=== PATIENT | female | born 1965 | race Caucasian/White ===

== ENCOUNTER 2020-05-20 21:40 | Inpatient (IN) | payer SELFPAY ==
[~2020-05-20] VITALS: Ht 162.6 cm; Wt 115.2 kg
[2020-05-20 23:32] LABS: BASOPHIL % 0.3 % (0-2); PLATELET COUNT 143 x10^3mcL (130-400); RED CELL DISTRIBUTION WIDTH 13.2 % (11.5-14.5)
[2020-05-20 23:48] LABS: CALCIUM 7.7 mg/dL (8.5-10.1); CARBON DIOXIDE 25.9 mmol/L (21-32); CHLORIDE SERUM 101 mmol/L (98-107); GFR1 > 60 mL/min; GLUCOSE SERUM 111 mg/dL (74-106); POTASSIUM SERUM 3.7 mmol/L (3.5-5.1); SODIUM SERUM 137 mmol/L (136-145)
[2020-05-20 23:53] LABS: ALKALINE PHOSPHATASE 69 U/L (46-116); ALT/SGPT 257 U/L (14-59); AST/SGOT 235 U/L (15-37); BILIRUBIN TOTAL 0.4 mg/dL (0.20-1.00); C REACTIVE PROTEIN 5.7 mg/dL (<=0.9); TOTAL PROTEIN, SERUM 7.2 g/dL (6.4-8.2)
[2020-05-20 23:58] LABS: ALBUMIN 3.3 g/dL (3.4-5.0); LACTIC DEHYDROGENASE (LDH) 622 U/L (100-190)
[2020-05-21] VITALS (9 sets, daily range): BP systolic 95–136; BP diastolic 50–78
[2020-05-21 01:41] LABS: CHOLESTEROL/HDL RATIO 3.9
[2020-05-21 02:06] LABS: FREE T4 0.85 ng/dL (0.76-1.46); T4(THYROXINE) 7.2 ug/dL (4.7-13.3)
[2020-05-21 02:36] LABS: FREE THYROXINE INDEX 2.2 ug/dL (1.4-4.5)
[2020-05-21 03:32] LABS: T3 TOTAL 0.88 ng/mL
[2020-05-21 03:41] LABS: microscopic required? YES; urine erythrocyte NEGATIVE (NEGATIVE)
[2020-05-21 06:31] LABS: BASOPHIL % 0.5 % (0-2); PLATELET COUNT 151 x10^3mcL (130-400); RED CELL DISTRIBUTION WIDTH 12.8 % (11.5-14.5)
[2020-05-21 06:46] LABS: CALCIUM 8.2 mg/dL (8.5-10.1); CARBON DIOXIDE 26.4 mmol/L (21-32); CHLORIDE SERUM 103 mmol/L (98-107); CREATININE SERUM 0.8 mg/dL (0.6-1.0); GFR1 > 60 mL/min; GLUCOSE SERUM 164 mg/dL (74-106); MAGNESIUM 2.3 mg/dL (1.8-2.4); SODIUM SERUM 140 mmol/L (136-145)
[2020-05-22 05:33] VITALS: BP 104/63
[2020-05-22 08:31] VITALS: BP 90/47
[2020-05-22 13:08] VITALS: BP 115/60
[2020-05-22 16:30] VITALS: BP 114/39
[2020-05-22 21:00] VITALS: BP 97/61
[2020-05-23 05:50] VITALS: BP 113/52
[2020-05-23 07:01] LABS: BASOPHIL % 0.1 % (0-2); PLATELET COUNT 203 x10^3mcL (130-400); RED CELL DISTRIBUTION WIDTH 13.1 % (11.5-14.5)
[2020-05-23 07:10] LABS: ALKALINE PHOSPHATASE 73 U/L (46-116); ALT/SGPT 169 U/L (14-59); AST/SGOT 120 U/L (15-37); BILIRUBIN TOTAL 0.5 mg/dL (0.20-1.00); CALCIUM 8.2 mg/dL (8.5-10.1); CARBON DIOXIDE 26.2 mmol/L (21-32); CHLORIDE SERUM 104 mmol/L (98-107); CREATININE SERUM 0.8 mg/dL (0.6-1.0); GFR1 > 60 mL/min; GLUCOSE SERUM 102 mg/dL (74-106); POTASSIUM SERUM 4.1 mmol/L (3.5-5.1); SODIUM SERUM 140 mmol/L (136-145); TOTAL PROTEIN, SERUM 7.1 g/dL (6.4-8.2)
[2020-05-23 09:34] VITALS: BP 108/58
[2020-05-23 13:16] VITALS: BP 105/42
[2020-05-23 18:32] VITALS: BP 115/64
[2020-05-23 20:32] VITALS: BP 111/67; BP 96/55
[2020-05-24 05:46] VITALS: BP 116/59
[2020-05-24 06:50] LABS: BASOPHIL % 0.3 % (0-2); PLATELET COUNT 235 x10^3mcL (130-400); RED CELL DISTRIBUTION WIDTH 13.1 % (11.5-14.5)
[2020-05-24 07:15] LABS: ALKALINE PHOSPHATASE 110 U/L (46-116); ALT/SGPT 197 U/L (14-59); AST/SGOT 153 U/L (15-37); BILIRUBIN TOTAL 0.55 mg/dL (0.20-1.00); CALCIUM 8.7 mg/dL (8.5-10.1); CARBON DIOXIDE 25.4 mmol/L (21-32); CHLORIDE SERUM 109 mmol/L (98-107); CREATININE SERUM 0.6 mg/dL (0.6-1.0); GFR1 > 60 mL/min; GLUCOSE SERUM 107 mg/dL (74-106); POTASSIUM SERUM 3.9 mmol/L (3.5-5.1); SODIUM SERUM 138 mmol/L (136-145); TOTAL PROTEIN, SERUM 7.3 g/dL (6.4-8.2)
[2020-05-24 07:27] LABS: ALBUMIN 2.7 g/dL (3.4-5.0)
[2020-05-24 08:39] VITALS: BP 116/72
[2020-05-24 12:10] VITALS: BP 114/60
[2020-05-24 15:35] VITALS: BP 116/70
[2020-05-24 22:32] VITALS: BP 112/58
[2020-05-25 06:00] VITALS: BP 103/64
[2020-05-25 06:28] LABS: BASOPHIL % 0.1 % (0-2); PLATELET COUNT 278 x10^3mcL (130-400); RED CELL DISTRIBUTION WIDTH 13.2 % (11.5-14.5)
[2020-05-25 07:04] LABS: ALKALINE PHOSPHATASE 110 U/L (46-116); ALT/SGPT 174 U/L (14-59); AST/SGOT 111 U/L (15-37); BILIRUBIN TOTAL 0.61 mg/dL (0.20-1.00); CALCIUM 8.5 mg/dL (8.5-10.1); CARBON DIOXIDE 28.8 mmol/L (21-32); CHLORIDE SERUM 103 mmol/L (98-107); CREATININE SERUM 0.7 mg/dL (0.6-1.0); GFR1 > 60 mL/min; GLUCOSE SERUM 113 mg/dL (74-106); POTASSIUM SERUM 4.5 mmol/L (3.5-5.1); SODIUM SERUM 139 mmol/L (136-145)
[2020-05-25 07:13] LABS: BILIRUBIN DIRECT 0.16 mg/dL (0.0-0.2); BILIRUBIN TOTAL 0.54 mg/dL (0.20-1.00); TOTAL PROTEIN, SERUM 7.1 g/dL (6.4-8.2)
[2020-05-25 07:19] LABS: ALBUMIN 2.5 g/dL (3.4-5.0)
[2020-05-25 07:20] LABS: ALBUMIN 2.5 g/dL (3.4-5.0)
[2020-05-25 08:32] VITALS: BP 94/60
[2020-05-25 13:16] VITALS: BP 111/66
[2020-05-25 17:12] VITALS: BP 99/39
[2020-05-25 20:23] VITALS: BP 110/51
[2020-05-26 05:35] VITALS: BP 100/74
[2020-05-26 07:37] LABS: BILIRUBIN DIRECT 0.15 mg/dL (0.0-0.2); BILIRUBIN TOTAL 0.5 mg/dL (0.20-1.00); TOTAL PROTEIN, SERUM 6.2 g/dL (6.4-8.2)
[2020-05-26 07:40] LABS: ALBUMIN 2.6 g/dL (3.4-5.0)
[2020-05-26 08:59] VITALS: BP 87/40
[2020-05-26 12:30] VITALS: BP 127/32
[2020-05-26 16:25] VITALS: BP 118/53
[2020-05-26 20:31] VITALS: BP 102/51
[2020-05-27 06:23] VITALS: BP 110/50
[2020-05-27 06:45] LABS: ALBUMIN 2.4 g/dL (3.4-5.0); BILIRUBIN DIRECT 0.17 mg/dL (0.0-0.2); BILIRUBIN TOTAL 0.53 mg/dL (0.20-1.00); TOTAL PROTEIN, SERUM 6.6 g/dL (6.4-8.2)
[2020-05-27 08:50] VITALS: BP 86/41
[2020-05-27 12:23] VITALS: BP 85/38
[2020-05-27 16:18] VITALS: BP 103/58
[2020-05-27 21:11] VITALS: BP 110/58
[2020-05-28 06:52] VITALS: BP 107/70
[2020-05-28 07:21] LABS: BASOPHIL % 0.1 % (0-2); PLATELET COUNT 383 x10^3mcL (130-400); RED CELL DISTRIBUTION WIDTH 12.5 % (11.5-14.5)
[2020-05-28 07:47] LABS: CALCIUM 8.4 mg/dL (8.5-10.1); CARBON DIOXIDE 25.7 mmol/L (21-32); CHLORIDE SERUM 97 mmol/L (98-107); CREATININE SERUM 0.7 mg/dL (0.6-1.0); GFR1 > 60 mL/min; GLUCOSE SERUM 100 mg/dL (74-106); MAGNESIUM 2.1 mg/dL (1.8-2.4); PHOSPHOROUS 3.9 mg/dL (2.5-4.9); SODIUM SERUM 131 mmol/L (136-145)
[2020-05-28 09:01] VITALS: BP 153/89
[2020-05-28 11:31] VITALS: Ht 162.6 cm; Wt 115.2 kg
[2020-05-28 12:17] VITALS: BP 113/69
[2020-05-28 16:25] VITALS: BP 148/58
[2020-05-28 21:30] VITALS: BP 115/70
[2020-05-29 06:00] VITALS: BP 111/70
[2020-05-29 07:27] LABS: CALCIUM 8.4 mg/dL (8.5-10.1); CARBON DIOXIDE 27.7 mmol/L (21-32); CHLORIDE SERUM 98 mmol/L (98-107); CREATININE SERUM 0.7 mg/dL (0.6-1.0); GFR1 > 60 mL/min; GLUCOSE SERUM 121 mg/dL (74-106); POTASSIUM SERUM 4.2 mmol/L (3.5-5.1); SODIUM SERUM 132 mmol/L (136-145)
[2020-05-29 07:33] VITALS: BP 102/62
[2020-05-29 07:51] LABS: BASOPHIL % 0.1 % (0-2); PLATELET COUNT 377 x10^3mcL (130-400); RED CELL DISTRIBUTION WIDTH 12.1 % (11.5-14.5)
[2020-05-29 11:58] VITALS: BP 112/76
[2020-05-29 16:20] VITALS: BP 104/64
[2020-05-29 21:01] VITALS: BP 112/61
[2020-05-29 23:30] VITALS: BP 130/74
[2020-05-30 03:20] VITALS: BP 108/61
[2020-05-30 06:22] LABS: CALCIUM 8.5 mg/dL (8.5-10.1); CARBON DIOXIDE 26.2 mmol/L (21-32); CHLORIDE SERUM 99 mmol/L (98-107); CREATININE SERUM 0.7 mg/dL (0.6-1.0); GFR1 > 60 mL/min; GLUCOSE SERUM 101 mg/dL (74-106); POTASSIUM SERUM 4.5 mmol/L (3.5-5.1); SODIUM SERUM 134 mmol/L (136-145)
[2020-05-30 06:32] LABS: RED CELL DISTRIBUTION WIDTH 12.6 % (11.5-14.5)
[2020-05-30 06:54] LABS: BASOPHIL % 0 % (0-2); PLATELET COUNT 434 x10^3mcL (130-400)
[2020-05-30 08:00] VITALS: BP 94/57
[2020-05-30 12:00] VITALS: BP 104/56
[2020-05-30 16:00] VITALS: BP 117/70
[2020-05-30 19:15] VITALS: BP 121/78
[2020-05-31 06:29] VITALS: BP 109/50
[2020-05-31 06:49] LABS: CALCIUM 8.6 mg/dL (8.5-10.1); CARBON DIOXIDE 28.9 mmol/L (21-32); CHLORIDE SERUM 97 mmol/L (98-107); CREATININE SERUM 0.8 mg/dL (0.6-1.0); GFR1 > 60 mL/min; GLUCOSE SERUM 87 mg/dL (74-106); PLATELET COUNT 385 x10^3mcL (130-400); POTASSIUM SERUM 4.4 mmol/L (3.5-5.1); RED CELL DISTRIBUTION WIDTH 12.4 % (11.5-14.5); SODIUM SERUM 132 mmol/L (136-145)
[2020-05-31 07:03] LABS: BASOPHIL % 0 % (0-2)
[2020-05-31 08:09] VITALS: BP 108/61
[2020-05-31 12:51] VITALS: BP 115/64
[2020-05-31 16:07] VITALS: BP 113/66
[2020-06-01 05:59] VITALS: BP 99/63
[2020-06-01 07:15] LABS: C REACTIVE PROTEIN 11.8 mg/dL (<=0.9); CALCIUM 8.1 mg/dL (8.5-10.1); CARBON DIOXIDE 26.1 mmol/L (21-32); CHLORIDE SERUM 99 mmol/L (98-107); CREATININE SERUM 0.8 mg/dL (0.6-1.0); GFR1 > 60 mL/min; GLUCOSE SERUM 96 mg/dL (74-106); POTASSIUM SERUM 4.1 mmol/L (3.5-5.1); SODIUM SERUM 132 mmol/L (136-145)
[2020-06-01 08:26] LABS: BASOPHIL % 0.3 % (0-2); PLATELET COUNT 346 x10^3mcL (130-400); RED CELL DISTRIBUTION WIDTH 12.5 % (11.5-14.5)
[2020-06-01 08:44] VITALS: BP 99/66
[2020-06-01 13:04] VITALS: BP 100/63
[2020-06-01 17:05] VITALS: BP 138/80
[2020-06-01 20:39] VITALS: BP 97/57
[2020-06-02 05:36] VITALS: BP 94/57
[2020-06-02 06:36] LABS: C REACTIVE PROTEIN 9.6 mg/dL (<=0.9); CALCIUM 8.8 mg/dL (8.5-10.1); CHLORIDE SERUM 99 mmol/L (98-107); CREATININE SERUM 0.6 mg/dL (0.6-1.0); GFR1 > 60 mL/min; GLUCOSE SERUM 118 mg/dL (74-106); POTASSIUM SERUM 4.3 mmol/L (3.5-5.1); SODIUM SERUM 131 mmol/L (136-145)
[2020-06-02 07:40] LABS: PLATELET COUNT 307 x10^3mcL (130-400); RED CELL DISTRIBUTION WIDTH 12.4 % (11.5-14.5)
[2020-06-02 07:47] LABS: BASOPHIL % 0 % (0-2)
[2020-06-02 08:18] VITALS: BP 95/66
[2020-06-02 13:14] VITALS: BP 97/56
[2020-06-02 16:47] VITALS: BP 108/65
[2020-06-02 21:56] VITALS: BP 123/76
[2020-06-03 06:26] VITALS: BP 128/80
[2020-06-03 07:01] LABS: BASOPHIL % 0.1 % (0-2); PLATELET COUNT 385 x10^3mcL (130-400); RED CELL DISTRIBUTION WIDTH 12.3 % (11.5-14.5)
[2020-06-03 07:15] LABS: C REACTIVE PROTEIN 4.3 mg/dL (<=0.9); CALCIUM 8.8 mg/dL (8.5-10.1); CARBON DIOXIDE 28.3 mmol/L (21-32); CHLORIDE SERUM 101 mmol/L (98-107); CREATININE SERUM 0.6 mg/dL (0.6-1.0); GFR1 > 60 mL/min; GLUCOSE SERUM 143 mg/dL (74-106); POTASSIUM SERUM 4.1 mmol/L (3.5-5.1); SODIUM SERUM 136 mmol/L (136-145)
[2020-06-03 08:25] VITALS: BP 98/53
[2020-06-03 11:59] VITALS: BP 122/75
[2020-06-03 15:42] VITALS: BP 110/66
[2020-06-03 21:00] VITALS: BP 105/69
[2020-06-04 06:09] VITALS: BP 116/65
[2020-06-04 06:44] LABS: BASOPHIL % 0.1 % (0-2); PLATELET COUNT 357 x10^3mcL (130-400); RED CELL DISTRIBUTION WIDTH 12.4 % (11.5-14.5)
[2020-06-04 06:51] LABS: C REACTIVE PROTEIN 2.1 mg/dL (<=0.9); CALCIUM 8.9 mg/dL (8.5-10.1); CARBON DIOXIDE 28.8 mmol/L (21-32); CHLORIDE SERUM 101 mmol/L (98-107); CREATININE SERUM 0.7 mg/dL (0.6-1.0); GFR1 > 60 mL/min; GLUCOSE SERUM 145 mg/dL (74-106); POTASSIUM SERUM 4.7 mmol/L (3.5-5.1); SODIUM SERUM 136 mmol/L (136-145)
[2020-06-04 09:39] VITALS: BP 110/803
[2020-06-04 13:00] VITALS: BP 113/75
[2020-06-04 16:47] VITALS: BP 134/74
[2020-06-04 20:39] VITALS: BP 111/50
[2020-06-05 06:29] LABS: BASOPHIL % 0.1 % (0-2); PLATELET COUNT 311 x10^3mcL (130-400)
[2020-06-05 06:34] VITALS: BP 103/57
[2020-06-05 06:42] LABS: C REACTIVE PROTEIN 1.2 mg/dL (<=0.9); CALCIUM 8.6 mg/dL (8.5-10.1); CHLORIDE SERUM 101 mmol/L (98-107); CREATININE SERUM 0.6 mg/dL (0.6-1.0); GFR1 > 60 mL/min; GLUCOSE SERUM 127 mg/dL (74-106); POTASSIUM SERUM 4.4 mmol/L (3.5-5.1); SODIUM SERUM 135 mmol/L (136-145)
[2020-06-05 09:33] VITALS: BP 101/68
[2020-06-05 11:52] VITALS: BP 109/41
[2020-06-05 17:33] VITALS: BP 113/69
[2020-06-05 20:42] VITALS: BP 105/66
[2020-06-06 02:23] VITALS: BP 103/66
[2020-06-06 07:11] LABS: BASOPHIL % 0.1 % (0-2); PLATELET COUNT 276 x10^3mcL (130-400); RED CELL DISTRIBUTION WIDTH 12.4 % (11.5-14.5)
[2020-06-06 07:17] LABS: C REACTIVE PROTEIN 0.6 mg/dL (<=0.9); CALCIUM 8.6 mg/dL (8.5-10.1); CARBON DIOXIDE 29.6 mmol/L (21-32); CHLORIDE SERUM 102 mmol/L (98-107); CREATININE SERUM 0.6 mg/dL (0.6-1.0); GFR1 > 60 mL/min; GLUCOSE SERUM 136 mg/dL (74-106); POTASSIUM SERUM 4.3 mmol/L (3.5-5.1); SODIUM SERUM 135 mmol/L (136-145)
[2020-06-06 08:27] VITALS: BP 124/69
[2020-06-06 12:02] VITALS: BP 111/70
[2020-06-06 16:29] VITALS: BP 111/81
[2020-06-06 20:07] VITALS: BP 135/65
[2020-06-07 05:45] VITALS: BP 104/67
[2020-06-07 05:46] VITALS: BP 105/61
[2020-06-07 06:25] LABS: BASOPHIL % 0.1 % (0-2); PLATELET COUNT 261 x10^3mcL (130-400); RED CELL DISTRIBUTION WIDTH 12.5 % (11.5-14.5)
[2020-06-07 06:40] LABS: C REACTIVE PROTEIN 0.4 mg/dL (<=0.9); CALCIUM 8.4 mg/dL (8.5-10.1); CARBON DIOXIDE 28.8 mmol/L (21-32); CHLORIDE SERUM 101 mmol/L (98-107); CREATININE SERUM 0.6 mg/dL (0.6-1.0); GFR1 > 60 mL/min; GLUCOSE SERUM 128 mg/dL (74-106); POTASSIUM SERUM 4.3 mmol/L (3.5-5.1); SODIUM SERUM 137 mmol/L (136-145)
[2020-06-07 08:44] VITALS: BP 113/60
[2020-06-07 11:58] VITALS: BP 121/62
[2020-06-07 16:25] VITALS: BP 123/69
[2020-06-07 20:45] VITALS: BP 101/56
[2020-06-08 06:50] VITALS: BP 95/60
[2020-06-08 08:17] VITALS: BP 104/57
[2020-06-08 12:04] VITALS: BP 110/76
[2020-06-08 18:18] VITALS: BP 108/62
[2020-06-08 20:36] VITALS: BP 120/70
[2020-06-09 05:32] VITALS: BP 96/47
[2020-06-09 08:15] VITALS: BP 115/76
[2020-06-09 12:47] VITALS: BP 101/70
[2020-06-09 16:02] VITALS: BP 107/64
[2020-06-09 20:23] VITALS: BP 102/74
[2020-06-10 06:24] LABS: PLATELET COUNT 196 x10^3mcL (130-400); RED CELL DISTRIBUTION WIDTH 12.6 % (11.5-14.5)
[2020-06-10 06:56] LABS: BASOPHIL % 0 % (0-2)
[2020-06-10 06:57] LABS: CALCIUM 8.2 mg/dL (8.5-10.1); CARBON DIOXIDE 28.8 mmol/L (21-32); CHLORIDE SERUM 101 mmol/L (98-107); CREATININE SERUM 0.7 mg/dL (0.6-1.0); GFR1 > 60 mL/min; GLUCOSE SERUM 130 mg/dL (74-106); POTASSIUM SERUM 4.1 mmol/L (3.5-5.1); SODIUM SERUM 136 mmol/L (136-145)
[2020-06-10 07:15] VITALS: BP 109/58
[2020-06-10 09:29] VITALS: BP 102/63
[2020-06-10 12:33] VITALS: BP 94/56
[2020-06-10 17:33] VITALS: BP 117/51
[2020-06-10 21:09] VITALS: BP 97/64
[2020-06-11 05:36] VITALS: BP 117/63
[2020-06-11 09:13] LABS: BASOPHIL % 0 % (0-2); PLATELET COUNT 193 x10^3mcL (130-400); RED CELL DISTRIBUTION WIDTH 12.8 % (11.5-14.5)
[2020-06-11 09:30] VITALS: BP 120/77
[2020-06-11 13:20] VITALS: BP 104/71
[2020-06-11 15:30] VITALS: BP 104/71
[2020-06-11 16:36] VITALS: BP 124/67
[2020-06-11 21:03] VITALS: BP 109/70
[2020-06-12 05:24] VITALS: BP 119/75
[2020-06-12 08:40] VITALS: BP 110/68
[2020-06-12 12:17] VITALS: BP 129/63
[2020-06-12 17:05] VITALS: BP 110/62
[2020-06-12 21:49] VITALS: BP 100/70
[2020-06-13 04:46] VITALS: BP 106/64
[2020-06-13 08:08] VITALS: BP 113/67
[2020-06-13 13:29] VITALS: BP 125/77
[2020-06-13 17:16] VITALS: BP 107/69
[2020-06-13 20:46] VITALS: BP 115/73
[2020-06-14 04:55] VITALS: BP 93/54
[2020-06-14 07:48] LABS: CALCIUM 8.5 mg/dL (8.5-10.1); CARBON DIOXIDE 26.9 mmol/L (21-32); CHLORIDE SERUM 101 mmol/L (98-107); CREATININE SERUM 0.6 mg/dL (0.6-1.0); GFR1 > 60 mL/min; GLUCOSE SERUM 129 mg/dL (74-106); POTASSIUM SERUM 3.9 mmol/L (3.5-5.1); SODIUM SERUM 137 mmol/L (136-145)
[2020-06-14 08:40] LABS: PLATELET COUNT 188 x10^3mcL (130-400); RED CELL DISTRIBUTION WIDTH 13.2 % (11.5-14.5)
[2020-06-14 08:52] VITALS: BP 106/61
[2020-06-14 09:41] LABS: BASOPHIL % 0 % (0-2)
[2020-06-14 12:32] VITALS: BP 97/57
[2020-06-14 16:11] VITALS: BP 99/63
[2020-06-14 21:19] VITALS: BP 116/60
[2020-06-15 05:14] VITALS: BP 93/58
[2020-06-15 06:32] LABS: PLATELET COUNT 168 x10^3mcL (130-400); RED CELL DISTRIBUTION WIDTH 13.3 % (11.5-14.5)
[2020-06-15 06:52] LABS: CALCIUM 8.5 mg/dL (8.5-10.1); CARBON DIOXIDE 29.3 mmol/L (21-32); CHLORIDE SERUM 102 mmol/L (98-107); CREATININE SERUM 0.7 mg/dL (0.6-1.0); GFR1 > 60 mL/min; GLUCOSE SERUM 136 mg/dL (74-106); POTASSIUM SERUM 4.1 mmol/L (3.5-5.1); SODIUM SERUM 137 mmol/L (136-145)
[2020-06-15 07:04] LABS: C REACTIVE PROTEIN < 0.2 mg/dL (<=0.9)
[2020-06-15 07:08] LABS: BASOPHIL % 0 % (0-2)
[2020-06-15 08:34] VITALS: BP 114/69
[2020-06-15 13:43] VITALS: BP 111/69
[2020-06-15 18:33] VITALS: BP 124/79
[2020-06-15 20:35] VITALS: BP 104/59
[2020-06-16 06:24] VITALS: BP 111/59
[2020-06-16 07:09] LABS: CALCIUM 8.2 mg/dL (8.5-10.1); CARBON DIOXIDE 29.5 mmol/L (21-32); CHLORIDE SERUM 102 mmol/L (98-107); CREATININE SERUM 0.7 mg/dL (0.6-1.0); GFR1 > 60 mL/min; GLUCOSE SERUM 132 mg/dL (74-106); SODIUM SERUM 137 mmol/L (136-145)
[2020-06-16 08:05] LABS: BASOPHIL % 0.2 % (0-2); PLATELET COUNT 166 x10^3mcL (130-400); RED CELL DISTRIBUTION WIDTH 13.6 % (11.5-14.5)
[2020-06-16 09:16] VITALS: BP 102/64
[2020-06-16 13:08] VITALS: BP 101/66
[2020-06-16 16:52] VITALS: BP 124/54
[2020-06-16 21:57] VITALS: BP 100/62
[2020-06-17 05:23] VITALS: BP 106/55
[2020-06-17 07:15] LABS: PLATELET COUNT 166 x10^3mcL (130-400); RED CELL DISTRIBUTION WIDTH 13.7 % (11.5-14.5)
[2020-06-17 07:24] LABS: CALCIUM 8.5 mg/dL (8.5-10.1); CARBON DIOXIDE 30.2 mmol/L (21-32); CHLORIDE SERUM 103 mmol/L (98-107); CREATININE SERUM 0.5 mg/dL (0.6-1.0); GFR1 > 60 mL/min; GLUCOSE SERUM 128 mg/dL (74-106); POTASSIUM SERUM 4.1 mmol/L (3.5-5.1); SODIUM SERUM 139 mmol/L (136-145)
[2020-06-17 07:30] LABS: BASOPHIL % 0 % (0-2)
[2020-06-17 07:51] VITALS: BP 153/96
[2020-06-17 12:20] VITALS: BP 105/70
[2020-06-17 16:20] VITALS: BP 135/59
[2020-06-17 20:35] VITALS: BP 100/64
[2020-06-18 06:28] VITALS: BP 91/50
[2020-06-18 07:01] LABS: CALCIUM 8.5 mg/dL (8.5-10.1); CARBON DIOXIDE 30.1 mmol/L (21-32); CHLORIDE SERUM 103 mmol/L (98-107); CREATININE SERUM 0.6 mg/dL (0.6-1.0); GFR1 > 60 mL/min; GLUCOSE SERUM 139 mg/dL (74-106); PLATELET COUNT 168 x10^3mcL (130-400); RED CELL DISTRIBUTION WIDTH 13.8 % (11.5-14.5); SODIUM SERUM 139 mmol/L (136-145)
[2020-06-18 07:22] LABS: C REACTIVE PROTEIN < 0.2 mg/dL (<=0.9)
[2020-06-18 08:11] LABS: BASOPHIL % 0 % (0-2)
[2020-06-18 09:07] VITALS: BP 115/60
[2020-06-18 12:14] VITALS: BP 102/71
[2020-06-18 17:10] VITALS: BP 106/61
[2020-06-18 19:32] VITALS: BP 94/55
[2020-06-19 05:38] VITALS: BP 104/57
[2020-06-19 07:02] LABS: PLATELET COUNT 168 x10^3mcL (130-400); RED CELL DISTRIBUTION WIDTH 14.2 % (11.5-14.5)
[2020-06-19 07:36] LABS: C REACTIVE PROTEIN 0.7 mg/dL (<=0.9); CALCIUM 8.8 mg/dL (8.5-10.1); CARBON DIOXIDE 27.5 mmol/L (21-32); CHLORIDE SERUM 104 mmol/L (98-107); CREATININE SERUM 0.5 mg/dL (0.6-1.0); GFR1 > 60 mL/min; GLUCOSE SERUM 141 mg/dL (74-106); SODIUM SERUM 142 mmol/L (136-145)
[2020-06-19 08:34] LABS: BASOPHIL % 0 % (0-2)
[2020-06-19 09:01] VITALS: BP 107/67
[2020-06-19 12:26] VITALS: BP 108/66
[2020-06-19 16:53] VITALS: BP 109/65
[2020-06-19 20:44] VITALS: BP 101/61
[2020-06-20 05:51] VITALS: BP 115/54
[2020-06-20 07:05] LABS: PLATELET COUNT 178 x10^3mcL (130-400)
[2020-06-20 07:06] LABS: BASOPHIL % 0 % (0-2); RED CELL DISTRIBUTION WIDTH 14.6 % (11.5-14.5)
[2020-06-20 07:20] LABS: CALCIUM 8.4 mg/dL (8.5-10.1); CARBON DIOXIDE 31.1 mmol/L (21-32); CHLORIDE SERUM 104 mmol/L (98-107); CREATININE SERUM 0.6 mg/dL (0.6-1.0); GFR1 > 60 mL/min; GLUCOSE SERUM 121 mg/dL (74-106); POTASSIUM SERUM 3.9 mmol/L (3.5-5.1); SODIUM SERUM 140 mmol/L (136-145)
[2020-06-20 08:41] VITALS: BP 112/73
[2020-06-20 13:12] VITALS: BP 130/84
[2020-06-20 17:08] VITALS: BP 116/70
[2020-06-20 21:07] VITALS: BP 101/58
[2020-06-21 06:22] VITALS: BP 101/56
[2020-06-21 07:24] LABS: BASOPHIL % 0.1 % (0-2); PLATELET COUNT 172 x10^3mcL (130-400)
[2020-06-21 07:49] LABS: C REACTIVE PROTEIN 0.9 mg/dL (<=0.9); CALCIUM 8.9 mg/dL (8.5-10.1); CARBON DIOXIDE 28.8 mmol/L (21-32); CHLORIDE SERUM 105 mmol/L (98-107); CREATININE SERUM 0.5 mg/dL (0.6-1.0); GFR1 > 60 mL/min; GLUCOSE SERUM 126 mg/dL (74-106); POTASSIUM SERUM 3.8 mmol/L (3.5-5.1); SODIUM SERUM 142 mmol/L (136-145)
[2020-06-21 08:35] VITALS: BP 111/61
[2020-06-21 08:49] LABS: RED CELL DISTRIBUTION WIDTH 14.8 % (11.5-14.5)
[2020-06-21] MEDS ORDERED: ZINC SULFATE220 MG PO ×2 (11:13→20:25)
[2020-06-21] MEDS ORDERED: LAC30L PO ×2 (11:13→20:25)
[2020-06-21] MEDS ORDERED: VENTOLIN H0.09 MG/A1 IH ×2 (11:13→20:25)
[2020-06-21] MEDS ORDERED: MUCINEX600 MG PO ×2 (11:13→20:25)
[2020-06-21] MEDS ORDERED: D-10001 TAB PO ×2 (11:14→20:25)
[2020-06-21] MEDS ORDERED: VITC PO ×2 (11:14→20:25)
[2020-06-21] MEDS ORDERED: PEP20 PO ×2 (11:14→20:25)
[2020-06-21] MEDS ORDERED: MEDROL DOSEPAK4 MG PO (11:15)
[2020-06-21] MEDS ORDERED: MEDI-FIRST ASP325 MG PO (11:15)
[2020-06-21 13:13] VITALS: BP 110/71
[2020-06-21 17:23] VITALS: BP 103/58
[2020-06-21] MEDS ORDERED: MEDROL4 MG PO (20:25)
[2020-06-21] MEDS ORDERED: COL100 PO (20:25)
== END 2020-06-21 20:44 | disposition home or self-care (01) | DRG 871 ==
LOC: ED 21:40 → DU 05-21 00:55 → IC 05-29 17:30 → DU 05-30 18:02
PROVIDERS: Emergency Medicine; Family Medicine; Internal Medicine; Student in an Organized Health Care Education/Training Program; ADMIT Internal Medicine; ATTEND Internal Medicine
PROC: 30233M1 Transfusion of Nonautologous Plasma Cryoprecipitate into Peripheral Vein, Percutaneous Approach (ICD-10-PCS; 2020-05-21)
PROC: 5A09357 Assistance with Respiratory Ventilation, Less than 24 Consecutive Hours, Continuous Positive Airway Pressure (ICD-10-PCS; 2020-05-22)
PROC: XW033E5 Introduction of Remdesivir Anti-infective into Peripheral Vein, Percutaneous Approach, New Technology Group 5 (ICD-10-PCS; principal; 2020-05-23)
PROC: 5A09557 Assistance with Respiratory Ventilation, Greater than 96 Consecutive Hours, Continuous Positive Airway Pressure (ICD-10-PCS; 2020-05-27)
PROC: 5A09357 Assistance with Respiratory Ventilation, Less than 24 Consecutive Hours, Continuous Positive Airway Pressure (ICD-10-PCS; 2020-06-03)
DX: A41.9 Sepsis, unspecified organism (principal); U07.1 COVID-19; J12.89 Other viral pneumonia; J96.01 Acute respiratory failure with hypoxia; N39.0 Urinary tract infection, site not specified; R73.03 Prediabetes; B96.20 Unspecified Escherichia coli [E. coli] as the cause of diseases classified elsewhere; Z79.899 Other long term (current) drug therapy; Z88.8 Allergy status to other drugs, medicaments and biological substances
CPT/HCPCS: 36600; 83880; 84439; 85378; 87804; C9113; G0378; J0456; J0696; J1100; J1644; J1650; J2405; J2920; J3535; J7030; J7040; J7050; J7060; U0003